=== PATIENT | male | born 1975 | race Caucasian/White ===

== ENCOUNTER 2019-09-14 09:22 | Emergency (ER) | payer BC ==
--- NOTE | 2019-09-14 10:13 | ER Document Report ---
ED Medical Screen (RME) - General Chief Complaint: Foot Pain Stated Complaint: LEFT FOOT PAIN Time Seen by Provider: 09/14/19 10:11 Mode of Arrival: Ambulatory Information source: Patient Notes: Patient presents complaining of left first metatarsal tenderness redness and swelling off and on for the past 6 weeks. Patient states that he was initially seen and told he might have gout although states that his blood work was negative. Patient states he then was told that he had an infection and was placed on antibiotics. Patient states that he was placed on steroids with the antibiotics and the pain and swelling improved and then as soon as he finished the antibiotics the pain and swelling returned. Patient denies any known trauma. Patient states that he has been taking leftover amoxicillin and leftover steroids at home over the past 4 days to manage his symptoms. I have greeted and performed a rapid initial assessment of this patient. A comprehensive ED assessment and evaluation of the patient, analysis of test results and completion of the medical decision making process will be conducted by additional ED providers. TRAVEL OUTSIDE OF THE [place] IN LAST 30 DAYS: No - Related Data Allergies/Adverse Reactions: No Known Allergies Allergy (Unverified 09/14/19 10:01) Past Medical History - Social History Chew tobacco use (# tins/day): No Frequency of alcohol use: None Drug Abuse: None Physical Exam - Vital signs Vitals: Temp Pulse Resp BP Pulse Ox 97.5 F 65 18 155/77 H 98 09/14/19 09:33 09/14/19 09:33 09/14/19 09:33 09/14/19 09:33 09/14/19 09:33 - General General appearance: Appears well, Alert Notes: Left first metatarsal tenderness with erythema Course - Vital Signs Vital signs: Temp Pulse Resp BP Pulse Ox 97.5 F 65 18 155/77 H 98 09/14/19 10:02 09/14/19 10:02 09/14/19 10:02 09/14/19 10:02 09/14/19 10:02
[2019-09-14 10:56] LABS: ABSOLUTE EOSINOPHILS # (AUTO) 0.1 10^3/uL (0.0-0.6); ABSOLUTE LYMPHOCYTES (AUTO) 1.8 10^3/uL (0.5-4.7); ABSOLUTE MONOCYTES (AUTO) 0.6 10^3/uL (0.1-1.4); ABSOLUTE NEUT (AUTO) 3.8 10^3/uL (1.7-8.2); BASOPHILS % (AUTO) 0.3 % (0-2); EOSINOPHILS % (AUTO) 2.1 % (0-6); HEMATOCRIT 42.9 % (37.9-51.0); HEMOGLOBIN 14.9 g/dL (13.5-17.0); LYMPHOCYTES % (AUTO) 28.1 % (13-45); MEAN CORPUSCULAR HEMOGLOBIN 30.7 pg (27.0-33.4); MEAN CORPUSCULAR HGB CONC 34.8 g/dL (32.0-36.0); MEAN CORPUSCULAR VOLUME 88 fl (80-97); MONOCYTES % (AUTO) 9.1 % (3-13); PLATELET COUNT 244 10^3/uL (150-450); RED BLOOD COUNT 4.86 10^6/uL (4.35-5.55); SEGMENTED NEUTROPHILS % (AUTO) 60.4 % (42-78); TOTAL CELLS COUNTED % (AUTO) 100 %; WHITE BLOOD COUNT 6.3 10^3/uL (4.0-10.5)
--- NOTE | 2019-09-14 11:10 | RADIOLOGY REPORT (SQ) ---
EXAM DESCRIPTION: FOOT LEFT COMPLETE COMPLETED DATE/TIME: 09/14/2019 10:54 am REASON FOR STUDY: L foot pain COMPARISON: None. NUMBER OF VIEWS: Three views. TECHNIQUE: AP, lateral and oblique without weight bearing radiographic images acquired of the left f oot. LIMITATIONS: None. FINDINGS: MINERALIZATION: Normal. BONES: No acute fracture or dislocation. No worrisome bone lesions. JOINTS: Medial juxta-articular erosions head of 1st metatarsal typical of gout. SOFT TISSUES: No swelling. No calcifications. OTHER: No other significant finding. IMPRESSION: Gout 1st metatarsophalangeal joint. TECHNICAL DOCUMENTATION: JOB ID: [id number] [employer]- All Rights Reserved Reading location - IP/workstation name: [email or web address]
[2019-09-14 11:20] LABS: ALBUMIN 4.7 g/dL (3.5-5.0); ALKALINE PHOSPHATASE 64 U/L (38-126); ANION GAP 12 (5-19); ASPARTATE AMINO TRANSFERASE 45 U/L (17-59); BILIRUBIN,DIRECT 0.1 mg/dL (0.0-0.4); BILIRUBIN,TOTAL 0.6 mg/dL (0.2-1.3); BLOOD UREA NITROGEN 14 mg/dL (7-20); C-REACTIVE PROTEIN 21.1 mg/L (<10.0); CALCIUM 9.8 mg/dL (8.4-10.2); CARBON DIOXIDE 28 mmol/L (22-30); CHLORIDE 105 mmol/L (98-107); GLUCOSE 100 mg/dL (75-110); POTASSIUM 3.9 mmol/L (3.6-5.0); URIC ACID 6.9 mg/dL (3.5-8.5)
[2019-09-14 11:40] LABS: ERYTHROCYTE SEDIMENTATION RATE 17 mm/hr (0-15)
--- NOTE | 2019-09-14 14:47 | ER Document Report ---
ED Extremity Problem, Lower - General Chief Complaint: Foot Pain Stated Complaint: LEFT FOOT PAIN Time Seen by Provider: 09/14/19 10:11 Mode of Arrival: Ambulatory Information source: Patient TRAVEL OUTSIDE OF THE [place] IN LAST 30 DAYS: No - HPI Location: Great Toe Occurred: Last week - No acute injury was noted. Patient reports he noted that his left great toe in the area of a bunion was tender and swollen and red. Patient has been seen in an urgent care in the past 2 weeks and was put on antibiotics and states that the swelling and the redness resolved and has returned. Onset/Duration: Sudden Quality of pain: Achy Severity: Moderate Context: Other - Patient does report that he exercises, and that may be 1 of the causes of his pain in his left great toe. - Related Data Allergies/Adverse Reactions: No Known Allergies Allergy (Unverified 09/14/19 10:01) Past Medical History - General Information source: Patient - Social History Smoking Status: Never Smoker Chew tobacco use (# tins/day): No Frequency of alcohol use: None Drug Abuse: None Family History: None Patient has suicidal ideation: No Patient has homicidal ideation: No Review of Systems - Review of Systems Constitutional: No symptoms reported EENT: No symptoms reported Cardiovascular: No symptoms reported Respiratory: No symptoms reported Gastrointestinal: No symptoms reported Genitourinary: No symptoms reported Male Genitourinary: No symptoms reported Musculoskeletal: No symptoms reported Skin: No symptoms reported Hematologic/Lymphatic: No symptoms reported Neurological/Psychological: No symptoms reported Physical Exam - Vital signs Vitals: Temp Pulse Resp BP Pulse Ox 97.5 F 65 18 155/77 H 98 09/14/19 09:33 09/14/19 09:33 09/14/19 09:33 09/14/19 09:33 09/14/19 09:33 - Extremities General upper extremity: Normal inspection - Skin Notes: Left great toe with purplish erythema around the first MTP joint with noted bunion deformity. No open wounds Course - Vital Signs Vital signs: Temp Pulse Resp BP Pulse Ox 97.5 F 65 18 155/77 H 98 09/14/19 10:02 09/14/19 10:02 09/14/19 10:02 09/14/19 10:02 09/14/19 10:02 - Laboratory Result Diagrams: 09/14/19 10:33 09/14/19 10:33 Laboratory results interpreted by me: 09/14/19 09/14/19 10:33 10:33 ESR 17 H C-Reactive Protein 21.1 H - Diagnostic Test Radiology reviewed: Reports reviewed - Radiology report of the CT scan of left lower extremity disclosed a subchondral cyst versus osteomyelitis. Radiologist did question whether or not patient had a skin ulcer in this area and patient does not. This seems to make it less likely osteomyelitis and more likely a subchondral cyst that is noted on the CT scan. Nonetheless patient has an appointment with a flexboard operator in a few days which expressed to him that I think he should follow-up with and and I will begin patient on Augmentin at this time. Discharge - Discharge Clinical Impression: Left foot pain, sub chondral cyst Condition: Good Disposition: HOME, SELF-CARE Additional Instructions: Recommend continued follow-up as you plan with the flexboard operator. Meanwhile we will begin antibiotics Augmentin 875 mg twice daily until further instructions per flexboard operator. Copies of x-ray and CT scans and values should go with you with this discharge. Prescriptions: Amox Tr/Potassium Clavulanate [Augmentin 875-125 Tablet] 1 tab PO BID 10 Days #20 tablet
--- NOTE | 2019-09-14 15:13 | RADIOLOGY REPORT (SQ) ---
EXAM DESCRIPTION: CT LT LOWER EXTREMITY WITHOUT COMPLETED DATE/TIME: 09/14/2019 2:52 pm REASON FOR STUDY: swelling/eyrthema 1st MTP.Question infection osteo COMPARISON: None. TECHNIQUE: Axial imaging performed through the Left foot with reformatted coronal and sagittal imaging windowed for bone and soft tissues. Images saved to PAC S. 3D IMAGING: Were 3D images as MIP, SSD, or volume rendering performed at the work station? No LIMITATIONS: None. FINDINGS: SOFT TISSUES: Swelling adjacent to the 1st metatarsophalangeal joint. BONY STRUCTURES: There is subchondral cyst and osteophyte formation in the head of the 1st metatarsal . There is a defect in the dorsal cortex on Image 16 of series 300 which could represent osteomyelit is but is probably a subchondral cyst. No periosteal reaction. MINERALIZATION: Normal. OTHER: No other significant finding. IMPRESSION: Cannot exclude osteomyelitis. Favor subchondral cyst formation. Correlate with locatio n of any skin ulcer. Reading location - IP/workstation name: [email or web address]
[2019-09-14 17:21] VITALS: BP 143/85
== END 2019-09-14 17:27 | disposition home or self-care (01) ==
LOC: ER 09:22
DX: M85.60 Other cyst of bone, unspecified site (principal); M21.612 Bunion of left foot; M79.672 Pain in left foot
CPT/HCPCS: 36415; 80053; 84550; 85025; 85652; 86140; 87040; 99284